=== PATIENT | male | born 1950 | race Caucasian/White ===

== ENCOUNTER 2018-07-24 14:36 | Emergency (ER) | payer OTHER, MEDICARE ==
[2018-07-24] MEDS ORDERED: Ondansetron 4 MG Tab.DIS PO ONE ×2 (15:37→15:44)
--- NOTE | 2018-07-24 16:16 | EDM.PDOC ---
ED HPI GENERAL MEDICAL PROBLEM - General Chief Complaint: Chest Pain Stated Complaint: CHEST PAIN Time Seen by Provider: 07/24/18 15:13 Source of Information: Reports: Patient, RN Notes Reviewed History Limitations: Reports: No Limitations - History of Present Illness INITIAL COMMENTS - FREE TEXT/NARRATIVE: Patient is a 67-year-old male who presents to the ED for the evaluation of central chest pain. The patient notes that he did have an esophagectomy about 2 months ago done in [facility]. He states he does have some nausea, central chest pain, and is unsure if he has some gas pains or not. The patient further notes that he feels like he has no energy, and just feels drained. The patient notes that he did have a Holter monitor done within the last 2 months, and this did demonstrate some cardiac pauses for which he is being worked up by his provider in [place]. He and his are traveling through [place] to [facility] to see some family, and decided to stop at the ER for evaluation. The patient states that he does have normal pain medications for the esophagectomy due to esophageal cancer and is on Zofran 8 mg twice a day. Him and his further note that the provider did stop his metoprolol a few days ago before they started to trip. The patient states that he has has stents placed in the past. Middle Chest Pain Score (Numeric/FACES): 6 - Related Data Allergies Allergy/AdvReac Type Severity Reaction Status Date / Time omeprazole [From Prilosec] Allergy Cannot Verified 07/24/18 14:46 Remember simvastatin [From Zocor] Allergy Cannot Verified 07/24/18 14:46 Remember Home Meds: Home Meds Acetaminophen [Tylenol Solution] 320 mg PO Q6H PRN 07/24/18 [History] Aspirin [Halfprin] 81 mg PO DAILY 07/24/18 [History] Lansoprazole [Prevacid] 30 mg PO DAILY 07/24/18 [History] Levothyroxine 125 mcg PO ACBREAKFAST 07/24/18 [History] Rosuvastatin [Crestor] 10 mg PO DAILY 07/24/18 [History] Ticagrelor [Brilinta] 60 mg PO BID 07/24/18 [History] Varenicline Tartrate [Chantix] 1 mg PO BID 07/24/18 [History] oxyCODONE 5 mg PO Q8H PRN 07/24/18 [History] Past Medical History HEENT History: Reports: Impaired Vision Cardiovascular History: Reports: [place], Stents Musculoskeletal History: Reports: Fracture Other Musculoskeletal History: left wrist fracture, right shoulder fracture Endocrine/Metabolic History: Reports: Hypothyroidism, Osteoporosis Oncologic (Cancer) History: Reports: Esophageal - Past Surgical History GI Surgical History: Reports: Other (See Below) Other GI Surgeries/Procedures: esophagous removed Social & Family History - Tobacco Use Smoking Status *Q: Former Smoker Used Tobacco, but Quit: Yes Month/Year Tobacco Last Used: 2017 - Caffeine Use Caffeine Use: Reports: Soda - Recreational Drug Use Recreational Drug Use: No ED ROS GENERAL - Review of Systems Review Of Systems: See Below Constitutional: Denies: Fever, Chills HEENT: Reports: No Symptoms Respiratory: Reports: No Symptoms Cardiovascular: Reports: Chest Pain (central) Endocrine: Reports: No Symptoms GI/Abdominal: Reports: Abdominal Pain (generalized), Nausea, Vomiting (dry heaves). Denies: Constipation, Diarrhea : Reports: No Symptoms Musculoskeletal: Reports: No Symptoms Skin: Reports: No Symptoms Neurological: Reports: No Symptoms Psychiatric: Reports: No Symptoms Hematologic/Lymphatic: Reports: No Symptoms Immunologic: Reports: No Symptoms ED EXAM, GENERAL - Physical Exam Exam: See Below Exam Limited By: No Limitations General Appearance: Alert, WD/WN, No Apparent Distress Eye Exam: Bilateral Eye: EOMI, Normal Inspection, PERRL Ears: Normal External Exam Nose: Normal Inspection Throat/Mouth: Normal Inspection, Normal Lips, Normal Teeth, Normal Gums, Normal Oropharynx, Normal Voice, No Airway Compromise Head: Atraumatic, Normocephalic Neck: Normal Inspection Respiratory/Chest: No Respiratory Distress, Lungs Clear, Normal Breath Sounds, No Accessory Muscle Use, Chest Non-Tender Cardiovascular: Normal Peripheral Pulses, Regular Rate, Rhythm, No Murmur GI/Abdominal: Normal Bowel Sounds, Soft, Non-Tender, No Distention, No Mass, Other (Well-healing Midline incision noted to upper abdomen, this is somewhat tender however he states this is not uncomfortably tender. There is no redness or swelling noted to this area.) Extremities: Normal Inspection, Normal Capillary Refill Neurological: Alert, Oriented, Normal Cognition, No Motor/Sensory Deficits Psychiatric: Normal Affect, Normal Mood Skin Exam: Warm, Dry, Intact, Normal Color, No Rash EKG INTERPRETATION EKG Date: 07/24/18 Time: 15:05 Rhythm: NSR Rate (Beats/Min): 78 [place]ry: Normal P-Wave: Present QRS: Normal ST-T: Normal QT: Normal Comparison: NA - No Prior EKG EKG Interpretation Comments: Reviewed with Dr. Wesley. Course - Vital Signs Last Recorded V/S: Last Vital Signs Temp 97.7 F 07/24/18 14:42 Pulse 83 07/24/18 14:42 Resp 15 07/24/18 14:42 BP 131/97 H 07/24/18 14:42 Pulse Ox 99 07/24/18 14:42 - Orders/Labs/Meds Orders: Active Orders 24 hr Category Date Time Status EKG Documentation Completion [RC] ASDIRECTED Care 07/24/18 15:05 Active Peripheral IV Care [RC] . DIRECTED Care 07/24/18 17:03 Active Peripheral IV Insertion Adult [OM.PC] Routine Oth 07/24/18 17:03 Ordered EKG 12 Lead [EK] Stat Ther 07/24/18 15:05 Ordered Labs: Laboratory Tests 07/24/18 07/24/18 07/24/18 Range/Units 15:50 15:50 15:50 WBC 5.86 (4.23-9.07) K/mm3 RBC 3.42 L (4.63-6.08) M/mm3 Hgb 11.1 L (13.7-17.5) gm/L Hct 33.3 L (40.1-51.0) % MCV 97.4 H (79.0-92.2) fl MCH 32.5 H (25.7-32.2) pg MCHC 33.3 (32.2-35.5) g/dl RDW Std Deviation 46.6 H (35.1-43.9) fL Plt Count 164 (163-337) K/mm3 MPV 9.1 L (9.4-12.3) fl Neutrophils % (Manual) 68 H (40-60) % Band Neutrophils % 0 (0-10) % Lymphocytes % (Manual) 7 L (20-40) % Atypical Lymphs % 0 % Monocytes % (Manual) 19 H (2-10) % Eosinophils % (Manual) 2 (0.8-7.0) % Basophils % (Manual) 4 H (0.2-1.2) Platelet Estimate Adequate Plt Morphology Comment Normal RBC Morph Comment Normal PT 11.9 (9.5-12.1) SECONDS INR 1.09 APTT 26 (24-31) SECONDS Sodium 135 L (136-145) mEq/L Potassium 3.5 (3.5-5.1) mEq/L Chloride 101 (98-107) mEq/L Carbon Dioxide 25 (21-32) mEq/L Anion Gap 12.5 (5-15) BUN 14 (7-18) mg/dL Creatinine 0.9 (0.7-1.3) mg/dL Est Cr Clr Drug Dosing TNP Estimated GFR (MDRD) > 60 (>60) mL/min BUN/Creatinine Ratio 15.6 (14-18) Glucose 100 (80-115) mg/dL Calcium 8.8 (8.5-10.1) mg/dL Magnesium 1.6 L (1.8-2.4) mg/dl Total Bilirubin 0.4 (0.2-1.0) mg/dL AST 22 (15-37) U/L ALT 21 (16-63) U/L Alkaline Phosphatase 101 (46-116) U/L Troponin I 0.109 H* (0.00-0.056) ng/mL NT-Pro-B Natriuret Pep (0-125) pg/mL Total Protein 6.7 (6.4-8.2) g/dl Albumin 3.1 L (3.4-5.0) g/dl Globulin 3.6 gm/dL Albumin/Globulin Ratio 0.9 L (1-2) 07/24/18 Range/Units 15:50 WBC (4.23-9.07) K/mm3 RBC (4.63-6.08) M/mm3 Hgb (13.7-17.5) gm/L Hct (40.1-51.0) % MCV (79.0-92.2) fl MCH (25.7-32.2) pg MCHC (32.2-35.5) g/dl RDW Std Deviation (35.1-43.9) fL Plt Count (163-337) K/mm3 MPV (9.4-12.3) fl Neutrophils % (Manual) (40-60) % Band Neutrophils % (0-10) % Lymphocytes % (Manual) (20-40) % Atypical Lymphs % % Monocytes % (Manual) (2-10) % Eosinophils % (Manual) (0.8-7.0) % Basophils % (Manual) (0.2-1.2) Platelet Estimate Plt Morphology Comment RBC Morph Comment PT (9.5-12.1) SECONDS INR APTT (24-31) SECONDS Sodium (136-145) mEq/L Potassium (3.5-5.1) mEq/L Chloride (98-107) mEq/L Carbon Dioxide (21-32) mEq/L Anion Gap (5-15) BUN (7-18) mg/dL Creatinine (0.7-1.3) mg/dL Est Cr Clr Drug Dosing Estimated GFR (MDRD) (>60) mL/min BUN/Creatinine Ratio (14-18) Glucose (80-115) mg/dL Calcium (8.5-10.1) mg/dL Magnesium (1.8-2.4) mg/dl Total Bilirubin (0.2-1.0) mg/dL AST (15-37) U/L ALT (16-63) U/L Alkaline Phosphatase (46-116) U/L Troponin I (0.00-0.056) ng/mL NT-Pro-B Natriuret Pep 317 H (0-125) pg/mL Total Protein (6.4-8.2) g/dl Albumin (3.4-5.0) g/dl Globulin gm/dL Albumin/Globulin Ratio (1-2) Meds: Medications Discontinued Medications Generic Name Dose Route Start Last Admin Trade Name Freq PRN Reason Stop Dose Admin Ondansetron HCl 8 mg 07/24/18 15:37 07/24/18 15:45 Zofran Odt PO 07/24/18 15:38 Not Given ONETIME ONE Ondansetron HCl 4 mg 07/24/18 15:44 07/24/18 15:50 Zofran Odt PO 07/24/18 15:45 4 mg ONETIME ONE Administration Sodium Chloride 10 ml 07/24/18 17:03 Saline Flush FLUSH ASDIRECTED PRN Keep Vein Open - Re-Assessments/Exams Free Text/Narrative Re-Assessment/Exam: 06/10/19 16:16 Patient presents to the ED for evaluation of chest pain. An EKG was done, and is within normal limits at this time. A medication list was obtained from the [facility] in [place], and reconciled with the patient. I have ordered a general chest pain workup to make sure this is nothing more than just general feelings of being unwell. 07/24/18 16:41 Patient's labs have returned, and revealed a troponin of 0.109. Will consult cardiology at [facility] for further management. 07/24/18 17:13 Patient has been made aware of the situation, and agrees to the transfer. He will be sent to [facility] in [place] for further management. Dr. Kaur, burial needs salesperson is the accepting. Dr. Heredia is the Hospitalist educational interpreter and accepts for inpatient in TCU. Departure - Departure Time of Disposition: 17:16 Disposition: DC/Tfer to Acute Hospital 02 Condition: Fair Clinical Impression: NSTEMI (non-ST elevated myocardial infarction) - Discharge Information *PRESCRIPTION DRUG MONITORING PROGRAM REVIEWED*: No *COPY OF PRESCRIPTION DRUG MONITORING REPORT IN PATIENT DELMY: No Referrals: PCP,Not In Area [Primary Care Provider] - Forms: ED Department Discharge - My Orders Last 24 Hours: My Active Orders 07/24/18 15:05 EKG Documentation Completion [RC] ASDIRECTED EKG 12 Lead [EK] Stat 07/24/18 17:03 Peripheral IV Care [RC] . DIRECTED Peripheral IV Insertion Adult [OM.PC] Routine - Assessment/Plan Last 24 Hours: My Active Orders 07/24/18 15:05 EKG Documentation Completion [RC] ASDIRECTED EKG 12 Lead [EK] Stat 07/24/18 17:03 Peripheral IV Care [RC] . DIRECTED Peripheral IV Insertion Adult [OM.PC] Routine
[2018-07-24] MEDS ORDERED: Sodium Chloride 0.9% 10 ML Syringe FLUSH PRN (17:03)
--- NOTE | 2018-07-24 18:57 | CR ---
Chest: Portable view of the chest was obtained. Comparison: No previous study. Heart size is slightly prominent but accentuated from portable technique. Coronary artery stent is present. Tortuous thoracic aorta is present. Lungs are clear with no acute parenchymal change. Bony structures are grossly intact. Impression: 1. Findings as noted above. Nothing acute is appreciated on portable chest x-ray. Diagnostic code #2
== END 2018-07-24 18:15 ==
LOC: JD.ED 14:36
DX: I21.4 Non-ST elevation (NSTEMI) myocardial infarction (principal); E03.9 Hypothyroidism, unspecified; Z79.899 Other long term (current) drug therapy; Z87.891 Personal history of nicotine dependence; Z88.8 Allergy status to other drugs, medicaments and biological substances
CPT/HCPCS: 36415; 71045; 80053; 83735; 83880; 84484; 85007; 85027; 85610; 85730; 93005; 99285; A9270; 93010; 99283